=== PATIENT | male | born 1965 | race Caucasian/White ===

== ENCOUNTER 2025-04-26 09:46 | Outpatient (REF) | payer MEDICARE, MEDICAID, SELFPAY ==
[2025-04-26 11:31] LABS: Erythrocyte Sedimentation Rate 44 MM/HR (0-15)
== END 2025-04-26 09:47 | disposition home or self-care (01) ==
LOC: HO.10HDL 09:46
PROVIDERS: Visit Provider Surgery Surgical Oncology
DX: M86.471 Chronic osteomyelitis with draining sinus, right ankle and foot (principal); E10.621 Type 1 diabetes mellitus with foot ulcer; L97.514 Non-pressure chronic ulcer of other part of right foot with necrosis of bone
CPT/HCPCS: 36415; 85652; 86140